=== PATIENT | male | born 1980 | race Caucasian/White ===

== ENCOUNTER → 2019-11-07 11:58 | Outpatient (BNVA) | payer OTHER, SELFPAY | PROVIDERS: Visit Provider Nurse Practitioner Family | DX: Z00.00 Encounter for general adult medical examination without abnormal findings (principal); S86.911A Strain of unspecified muscle(s) and tendon(s) at lower leg level, right leg, initial encounter; R53.83 Other fatigue; I10 Essential (primary) hypertension; E55.9 Vitamin D deficiency, unspecified; E78.2 Mixed hyperlipidemia; M25.461 Effusion, right knee; X58.XXXA Exposure to other specified factors, initial encounter | CPT/HCPCS: 36415; 73562; 80053; 80061; 81003; 82306; 84402; 84403; 84439; 84443; 84481; 85025 ==

== ENCOUNTER → 2022-03-20 09:10 | Outpatient (BNVA) | payer OTHER, SELFPAY | PROVIDERS: PCP Nurse Practitioner Family; Visit Provider Internal Medicine | DX: I10 Essential (primary) hypertension (principal); I51.9 Heart disease, unspecified; R53.83 Other fatigue | CPT/HCPCS: 80048; 85025; 85610 ==

== ENCOUNTER 2022-03-23 08:28 | Outpatient (CLI) | payer OTHER, SELFPAY ==
[2022-03-23] VITALS (14 sets, daily range): BP systolic 129–151; BP diastolic 77–98; PULSE 71–95; RESP 13–25; O2SAT 93–98; BMI 44.6
--- NOTE | 2022-03-23 09:00 | XACV_ITS ---
Exam Room: 2 Ht: 178 cm Wt: 141 kg BSA: 2.71 m2 Gender: Male : 1980 Any Known Allergies: Other Exam Priority: Routine Procedure(s): Procedure Description: Diagnostic procedure Procedure Description: Left Heart Catheterization Procedure Description: Right Heart Catheterization Procedure Description: Left ventriculography Procedure Description: Coronary Angiography Diagnostic Cath Status: Elective Diagnostic Findings * Left main artery: Patent LAD: Medium sized vessel. Patent. Distally diffuse disease is seen. Left circumflex artery: Patent. RCA: Large sized vessel. No significant stenosis seen.. * Coronary angiography shows right dominance. Conclusions 1. Left main artery: Patent LAD: Medium sized vessel. Patent. Distally diffuse disease is seen. Left circumflex artery: Patent. RCA: Large sized vessel. No significant stenosis seen.. 2. Borderline low left ventricular systolic function. Ejection fraction of 45-50%. 3. Non-ischemic cardiomyopathy with improving LV systolic function. 4. Mildly elevated Right and left sided cardiac pressures. Recommendations * Aggressive risk factor modification. * Outpatient cardiology follow up in 4 weeks. * We will start diuresis. Interventional RX Recommendation: medical therapy and/or counseling Diagnostic RX Recommendation: medical therapy and/or counseling Anticoagulation: Heparin Ventriculography Ejection Fraction: 50.0 % Pressures Phase:Rest AO : 136 / 88 ( 106 ) @ 10:43:00 AM 136 / 91 ( 106 ) @ 10:43:00 AM 130 / 82 ( 100 ) @ 10:51:00 AM 130 / 82 ( 100 ) @ 10:51:00 AM 142 / 86 ( 107 ) @ 10:55:00 AM LV : 145 / 2 / 19 @ 10:43:00 AM 143 / 0 / 13 @ 10:43:00 AM 145 / 3 / 20 @ 10:50:00 AM 144 / 1 / 20 @ 10:51:00 AM 148 / 0 / 16 @ 10:51:00 AM 142 / 2 / 21 @ 10:54:00 AM 143 / 1 / 16 @ 10:55:00 AM RV : 53 / 6 / 16 @ 10:35:00 AM PA : 39 / 18 ( 30 ) @ 10:33:00 AM RA : a wave = 20 v wave = 18 mean = 16 @ 10:36:00 AM PCW : a wave = 22 v wave = 22 mean = 18 @ 10:33:00 AM O2 Content Phase:Rest PA : O2 Content O2: 76.3 @ 10:43:00 AM Saturations Phase:Rest AO : 94 @ 10:43:00 AM PA : 76 @ 10:43:00 AM Cardiac Output Phase:Rest Placido : 8 @ 11:08:08 AM [place]acido Cardiac Index: 3 @ 11:08:08 AM Flow Phase:Rest Qp : 8 @ 11:08:08 AM Qs : 8 @ 11:08:08 AM Valves Phase:DefaultPhase AV : 6.0 @ 11:08:08 AM 6.0 @ 11:08:08 AM AV Mean Gradient: 13.0 @ 11:08:08 AM 13.0 @ 11:08:08 AM AV Flow: 431 @ 11:08:08 AM AV Area: 2.7 @ 11:08:08 AM AV Area Index: 1.07 @ 11:08:08 AM Clinical Evaluation EBL: 5mL-10mL Procedural Details Procedure Consent Obtained. Admit Source: Out Patient. Pre-Procedure Time Out. Identified patient by full name and date of as verbalized by the patient/guarantor. Does the consent match the physician's order: Yes. Accurate & Complete Informed Consent: Yes. Inpatient/Outpatient History & Physical on Chart: Yes. If H&P is completed, is and addenduem needed: No; If yes, is the addendum complete: N/A. Visualize and Verify Site with Patient/Guarantor: N/A. Relevant Radiology Images available: N/A. The risks, benefits, and alternatives of sedation and/or procedure were discussed by physician. The patient agrees to continue. Procedure started. [facility] Clinical Fraility Score: 3: Managing Well. 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 Chest Pain Symptom Assessment: Typical Angina Symptoms. Correct patient, site and procedure confirmed by cath team. IV Site on Arrival: 20 gauge in the right anticubital. IV Site on Arrival: 20 gauge in the left anticubital. IV Fluids: 0.9% NaCl at KVO. 0 mL infused prior to bed laborer. Pre Procedural Pulses: right radial was 3+. Pre Procedural Pulses: bilateral dorsalis pedis was 2+. Pre Procedural Pulses: bilateral posterior tibial was 2+. right groin was prepped with chloroprep then draped in the usual sterile fashion. right radial was prepped with chloroprep then draped in the usual sterile fashion. Physician notified. Baseline sample Acquired. HR: 80 BPM. Physician arrived. Physician scrubbed in. Immediate Pre-Procedure Time Out. Correct Patient: Yes; Correct Procedure: Yes; Correct Site: Yes; Correct Patient Position: Yes; Correct Supplies: Yes; Dried Flammable Prep: Yes; Blood Products Available: N/A;. Venous access obtained. [place]-Anca Won catheter inserted. [place] wire inserted. [place] catheter advanced into heart. Wire out. Oximetry samples were obtained. Normal venous range: 60-85%. Normal arterial range: 95-100%. Pressure measurements obtained. ABG drawn and sent with respiratory therapy. Huron-Anca out. Lidocaine 1% infiltrated to the right radial. Arterial access obtained. Drawing AO saturation. A 6 d[place] TIG catheter in over wire. EDP Sample taken: LV 145/2,19; HR: 76 BPM; SpO2: 97%. Pullback taken: LV 143/0,13; AO 136/88(106); Mean: 11mmHg, Peak to Peak: 8mmHg, SEP: 18sec/min; HR: 89 BPM; SpO2: 95%. Multiple views taken of left coronary artery. Catheter redirected to the RCA. Multiple views taken of right coronary artery. Catheter removed over the exchange wire. A 5 d[place] Angled Pig catheter in over wire. EDP Sample taken: LV 145/3,20; HR: 87 BPM; SpO2: 98%. LV gram performed in GRAFF @ 10 mL/second for a total of 30 mL. EDP Sample taken: LV 144/1,20; HR: 89 BPM; SpO2: 95%. Pullback taken: LV 148/-1,16; AO 130/82(100); Mean: 18mmHg, Peak to Peak: 17mmHg, SEP: 21sec/min; HR: 88 BPM; SpO2: 97%. Pullback taken: LV Off; AO Off; Mean: , Peak to Peak: , SEP: ; HR: 86 BPM; SpO2: 97%. EDP Sample taken: LV 142/2,21; HR: 87 BPM; SpO2: 98%. Pullback taken: LV 143/1,16; AO 142/86(107); Mean: 13mmHg, Peak to Peak: 6mmHg, SEP: 19sec/min; HR: 85 BPM; SpO2: 96%. A Manual Compression was successful obtaining hemostatsis at the Right Brachial Vein insertion site. A TR Band was successful obtaining hemostatsis at the Right Radial artery insertion site. PERRLA. Strong, equal hand human services professional bilaterally. No VTE prophylaxis required. Medication's Wasted: Lidocaine 1% = 2 mL. Medication's Wasted: Nitro = 49.8 mg. Total IV fluids: 21 mL. Post-op diagnosis: non obstructive CAD, mildly elevated right and left cardiac pressures. Complications: none. Estimated blood loss: 5mL-10mL. Responsiveness - Normal response to verbal stimuli; alert and oriented, PERRLA. Airway - Unaffected, no intervention required; spontaneous ventilation. Circulation: W/N/L, pulses unchanged. Nausea/Vomiting: No. Procedure completed. Patient transferred by wheelchair to CPRU. Vital chart was stopped. Access Site Site: Right Brachial Vein Sheath Size: 6 Fr Hemostasis Method: Manual Compression Hemostasis Success: Successful Site: Right Radial artery Sheath Size: 6 Fr Hemostasis Method: TR Band Hemostasis Success: Successful Procedure Medications Start: 10:19 AM Stop: 10:19 AM Medication: Versed Amount: 1 mg Route: I.V. Start: 10:19 AM Stop: 10:19 AM Medication: Fentanyl Amount: 50 mcg Route: I.V. Start: 10:38 AM Stop: 10:38 AM Medication: Versed Amount: 1 mg Route: I.V. Start: 10:40 AM Stop: 10:40 AM Medication: Nitrogylcerin Amount: 200 mcg Route: I.A. Start: 10:41 AM Stop: 10:41 AM Medication: Fentanyl Amount: 25 mcg Route: I.V. Start: 10:41 AM Stop: 10:41 AM Medication: Heparin Amount: 5000 units Route: I.V. Start: 10:49 AM Stop: 10:49 AM Medication: Versed Amount: 1 mg Route: I.V. Start: 10:55 AM Stop: 10:55 AM Medication: Fentanyl Amount: 25 mcg Route: I.V. Start: 10:58 AM Stop: 10:58 AM Medication: Versed Amount: 1 mg Route: I.V. I, the attending physician, have reviewed and verified all procedure medications. Yes, all medications given per verbal order History/Risk Factors Hypertension: No Dyslipidemia: Yes Peripheral Arterial Disease (PAD): No Myocardial Infarction (CO): No Obesity: No Tobacco Use: Former Prior Interventions PCI: No CABG: No Valve Surgery: No Report Signatures Finalized by Noel Mireles MD on 04/05/2022 05:46 PM
[2022-03-23] MEDS: diphenhydrAMINE 50 mg Capsule PO (09:04)
[2022-03-23] MEDS: aspirin 325 mg Tablet PO (09:05)
--- NOTE | 2022-03-23 10:17 | W.PM.OPSUD ---
Surgery/Procedure H&P Update DATE OF PROCEDURE: March 23, 2022 DATE H&P PERFORMED: 03/10/22 H&P UPDATE INFORMATION: I have reviewed H&P completed within last 30 days, I have examined patient prior to procedure and No changes to prior documentation PREOP DIAGNOSIS: LV dysfunction PRIMARY INDICATION FOR PROCEDURE: LV dysfunction PLANNED PROCEDURE: Operation Date: 03/23/22 10:00 Proposed Procedures p right and left heart cath 42438,I51.9,I44.7(Bilateral) - Noel Mireles M.D PATIENT REASSESSED PRIOR TO SEDATION, WITH NO CHANGE NOTED: Yes PHYSICAL EXAM: alert, oriented x 3, clear to auscultation bilaterally and regular rate & rhythm AIRWAY EVAL/ANESTHESIA PLAN: normal airway, ASA III, Local Anesthesia, Risks, benefits & alternatives of sedation and/or procedure discussed and Patient agrees to continue as planned ADDITIONAL INFORMATION: Moderate sedation
[2022-03-23 10:44] LABS: Alveolar-Arterial Oxygen Gradi 6.3 mmHg (5-10); Arterial Blood Gas Hematocrit 51.8 % (42-52); Blood Gas Operator Identificat MB; Blood Gas Sample Type Arterial; Carboxyhemoglobin 0.7 %THgb (0.4-20.1); HGB O2 Sat 75.2 % (95-100); Methemoglobin 0.8 % (0.4-1.5); Total Hemoglobin 16.9 g/dL (14-18)
[2022-03-23 10:47] LABS: Alveolar-Arterial Oxygen Gradi 2.8 mmHg (5-10); Arterial Blood Gas Hematocrit 50.9 % (42-52); Blood Gas Operator Identificat MB; Blood Gas Sample Type Arterial; Carboxyhemoglobin 0.4 %THgb (0.4-20.1); HGB O2 Sat 93.1 % (95-100); Methemoglobin 0.6 % (0.4-1.5); Total Hemoglobin 16.6 g/dL (14-18)
[2022-03-23 10:49] LABS: Blood Gas Sample Site PA
[2022-03-23 10:51] LABS: Blood Gas Sample Site AO
--- NOTE | 2022-03-23 11:29 | PC.NURSE ---
Received pt from senior label specialist post diagnostic right and left heart cath. Pt alert and oriented x4. Pt complains of no pain. Tr band on right wrist with distal pulse. Compression dressing on right brachial site. No bruising or hematoma noted at either site. Pt and family at bedside educated on restrictions of right arm. Both verbally acknowledged understanding. Nurse to continue to educate throughout recovery. pt placed on vitals monitor and will be monitored per protocol.
--- NOTE | 2022-03-23 13:23 | PC.NURSE ---
TR band Removal 1210 - 1 ml air removed from Right TR band. Site asymptomatic, no bleeding or hematoma. 1215- 1 ml air removed from right TR band. Site asymptomatic, no bleeding or hematoma. 1225- 2 ml air removed from right TR band. Site asymptomatic, no bleeding or hematoma. 1230- 2 ml air removed from right TR band. Site asymptomatic, no bleeding or hematoma. 1240- 2 ml air removed from right TR band. Site asymptomatic, no bleeding or hematoma. 1250- 2 ml air removed from right TR band. Site asymptomatic, no bleeding or hematoma. 1300- 3 ml air removed from right TR band. Site asymptomatic, no bleeding or hematoma. TR band deflated at this time. left in place to monitor for bleeding. 1315 - Site cleansed , right radial puncture site asymptomatic. No bleeding or hematoma noted. Bandaid applied over site.
--- NOTE | 2022-03-23 13:57 | PC.NURSE ---
Discharge Instructions Verbal and written discharge instructions given to the patient. Significant other at bedside. Verbalized understanding of instructions. Right radial TR site asymptomatic, no bleeding or hematoma. Right brachial venous site, asymptomatic no bleeding or hematoma noted.
== END 2022-03-23 14:08 | disposition home or self-care (01) ==
PROVIDERS: Visit Provider Internal Medicine
DX: I25.10 Atherosclerotic heart disease of native coronary artery without angina pectoris (principal); I42.8 Other cardiomyopathies; E78.5 Hyperlipidemia, unspecified; Z87.891 Personal history of nicotine dependence; I10 Essential (primary) hypertension; I44.7 Left bundle-branch block, unspecified; I51.9 Heart disease, unspecified
CPT/HCPCS: 36415; 82810; 93460; 96361; 96365; 99152; 99153; C1769; C1887; C1894; J1644; J2250; J3010; J3490; J7030; Q0163; Q9967

== ENCOUNTER → 2022-04-10 10:54 | Outpatient (BNVA) | payer OTHER, SELFPAY | PROVIDERS: Visit Provider Nurse Practitioner | DX: M10.9 Gout, unspecified (principal) | CPT/HCPCS: 84550 ==

== ENCOUNTER → 2022-06-01 11:13 | Outpatient (BNVA) | payer OTHER, SELFPAY | PROVIDERS: PCP Family Medicine; Visit Provider Nurse Practitioner | DX: M10.9 Gout, unspecified (principal) | CPT/HCPCS: 84550 ==

== ENCOUNTER → 2022-09-18 16:32 | Outpatient (BNVA) | payer OTHER, SELFPAY | PROVIDERS: PCP Family Medicine; Visit Provider Family Medicine | DX: M76.60 Achilles tendinitis, unspecified leg (principal) | CPT/HCPCS: 73620 ==

== ENCOUNTER → 2023-02-23 09:40 | Outpatient (BNVA) | payer OTHER, SELFPAY | PROVIDERS: PCP Family Medicine; Visit Provider Nurse Practitioner Family | DX: I10 Essential (primary) hypertension (principal); E78.2 Mixed hyperlipidemia; E55.9 Vitamin D deficiency, unspecified; R53.83 Other fatigue; Z79.899 Other long term (current) drug therapy | CPT/HCPCS: 80053; 80061; 81003; 82306; 83036; 84403; 84443; 85025 ==

== ENCOUNTER → 2023-02-27 08:51 | Outpatient (BNVA) | payer OTHER, SELFPAY | PROVIDERS: PCP Family Medicine; Visit Provider Nurse Practitioner Family | DX: Z00.00 Encounter for general adult medical examination without abnormal findings; I44.7 Left bundle-branch block, unspecified | CPT/HCPCS: 93005 ==

== ENCOUNTER → 2024-10-15 08:32 | Outpatient (BNVA) | payer OTHER, SELFPAY | PROVIDERS: PCP Nurse Practitioner Family; Visit Provider Nurse Practitioner Family | DX: I10 Essential (primary) hypertension (principal); M10.9 Gout, unspecified; E55.9 Vitamin D deficiency, unspecified; E78.2 Mixed hyperlipidemia; Z68.42 Body mass index [BMI] 45.0-49.9, adult; R53.83 Other fatigue | CPT/HCPCS: 80053; 80061; 81003; 82306; 83036; 84402; 84403; 84443; 84550; 85025 ==

== ENCOUNTER → 2024-11-27 09:48 | Outpatient (BNVA) | payer OTHER, SELFPAY | PROVIDERS: PCP Nurse Practitioner Family; Visit Provider Nurse Practitioner Family | DX: E29.1 Testicular hypofunction (principal) | CPT/HCPCS: 84402; 84403; 85025 ==

== ENCOUNTER → 2024-12-26 09:50 | Outpatient (BNVA) | payer OTHER, SELFPAY | PROVIDERS: PCP Nurse Practitioner Family; Visit Provider Nurse Practitioner Family | DX: E29.1 Testicular hypofunction (principal) | CPT/HCPCS: 84402; 84403; 85025 ==